=== PATIENT | female | born 1970 | race Two or more races ===

== ENCOUNTER 2019-07-30 17:30 | Emergency (ER) | payer SELFPAY ==
[~2019-07-30] VITALS: Ht 154.9 cm; Wt 65.8 kg
[2019-07-30 17:48] VITALS: BP_SYST 137
[2019-07-30] MEDS ORDERED: KETOROLAC TROMETHAMINE 60 MG/2 ML VIAL IM ONE (19:30)
[2019-07-30 19:48] VITALS: BP_SYST 128
== END 2019-07-30 19:48 | disposition home or self-care (01) ==
LOC: SED 17:30
DX: R07.89 Other chest pain (principal); R03.0 Elevated blood-pressure reading, without diagnosis of hypertension
CPT/HCPCS: 71046; 81025; 96372; 99283; J1885